=== PATIENT | male | born 1995 | race African-American/Black ===

== ENCOUNTER 2019-08-22 05:09 | Emergency (ER) | payer MEDICAID ==
[~2019-08-22] VITALS: Ht 188 cm; Wt 73.0 kg
[2019-08-22 05:11] VITALS: BP 124/88
== END 2019-08-22 06:05 | disposition home or self-care (01) ==
LOC: ER 05:09
DX: T40.7X1A Poisoning by cannabis (derivatives), accidental (unintentional), initial encounter (principal); F41.9 Anxiety disorder, unspecified; Y92.89 Other specified places as the place of occurrence of the external cause
CPT/HCPCS: 99283